=== PATIENT | female | born 1985 | race Caucasian/White ===

== ENCOUNTER 2021-10-29 05:34 | Emergency (ER) | payer SELFPAY ==
[2021-10-29] MEDS ORDERED: Ketorolac 60 MG/2 ML SDV IM ONE (05:57)
== END 2021-10-29 06:13 | disposition home or self-care (01) ==
LOC: MW.ED 05:34
DX: K02.9 Dental caries, unspecified (principal); Z88.1 Allergy status to other antibiotic agents
CPT/HCPCS: 96372; 99282; J1885

== ENCOUNTER 2021-10-30 08:04 | Emergency (ER) | payer SELFPAY ==
[2021-10-30] MEDS ORDERED: Lidocaine 2% Viscous Solution 15 ML UD PO ONE (08:26)
== END 2021-10-30 08:46 | disposition home or self-care (01) ==
LOC: MW.ED 08:04
DX: K02.9 Dental caries, unspecified (principal); Z88.1 Allergy status to other antibiotic agents
CPT/HCPCS: 99282; A9270